=== PATIENT | female | born 2000 | race Caucasian/White ===

== ENCOUNTER 2022-06-28 21:34 | Emergency (ER) | payer BC ==
[~2022-06-28] VITALS: Ht 162.6 cm; Wt 50.8 kg
[2022-06-28 21:42] VITALS: BP 121/68
[2022-06-28] MEDS ORDERED: AMOX500C2 PO (22:08)
[2022-06-28] MEDS ORDERED: AMOXICILLIN TRIHYDRATE 250 MG CAPSULE ONE (22:13)
[2022-06-28] MEDS ORDERED: DEXAMETHASONE SOD PHOSPHATE 10 MG/ML VIAL ONE (22:13)
[2022-06-28] MEDS ORDERED: IBUPROFEN 600 MG TABLET ONE (22:14)
[2022-06-28] MEDS: AMOXICILLIN TRIHYDRATE 500 MG CAPSULE PO ONE (22:19)
[2022-06-28] MEDS: IBUPROFEN 600 MG TABLET PO ONE (22:19)
[2022-06-28] MEDS: DEXAMETHASONE SOD PHOSPHATE 10 MG/ML VIAL IV ONE (22:19)
--- NOTE | 2022-06-28 22:19 | NUR ---
Patient discharged to home in stable condition. Written and verbal after care instructions given. Patient verbalizes understanding of instruction.
== END 2022-06-28 22:20 | disposition home or self-care (01) ==
LOC: ER 21:34
DX: J02.0 Streptococcal pharyngitis (principal)
CPT/HCPCS: 99283; 96374; J1100